=== PATIENT | male | born 1940 | race Asian ===

== ENCOUNTER 2019-06-21 10:18 | Emergency (ER) | payer MEDICARE, OTHER ==
[~2019-06-21] VITALS: Ht 170.2 cm; Wt 63.6 kg
[~2019-06-21 10:18] MED LIST: DOCU100T8 PO; HYDR28CR45; SIMV-260 PO; VALS160T2 PO
[2019-06-21] MEDS ORDERED: BACL10TA PO (10:25)
[2019-06-21] MEDS ORDERED: SENN-106 PO (10:25)
[2019-06-21] MEDS ORDERED: NAPH30DR5 OU (10:25)
[2019-06-21] MEDS ORDERED: LOSA50TA64 PO (10:25)
[2019-06-21 10:52] VITALS: BP 158/90
[2019-06-21] MEDS ORDERED: PROPARACAINE HCL 0.5% 15 ML OPHTHALMIC SOLUTION OU ONE (11:00)
== END 2019-06-21 11:35 | disposition home or self-care (01) ==
LOC: EMS 10:20
DX: H11.31 Conjunctival hemorrhage, right eye (principal); I10 Essential (primary) hypertension; E78.00 Pure hypercholesterolemia, unspecified; Z88.8 Allergy status to other drugs, medicaments and biological substances; Z79.899 Other long term (current) drug therapy

== ENCOUNTER 2025-08-03 15:47 | Emergency (ER) | payer OTHER ==
[~2025-08-03] VITALS: Ht 167.6 cm; Wt 60.5 kg
[~2025-08-03 15:47] MED LIST changes: +AMLO-258 PO; +ASPI-1444 PO; +ATOR20TA PO; +ATOR20TA65 PO; +AZIT500T4 PO; +DEXA2 PO; +DOCU-412 PO; -DOCU100T8 PO; -HYDR28CR45; +HYDR50TA37 PO; +LUBI24CA40 PO; +LUBI24CA9 PO; +METO25XL PO; +OXYB-34 PO; +PRAM0.5T12 PO; +PROP10DR15 OU; -SIMV-260 PO; -VALS160T2 PO
[2025-08-03 15:56] VITALS: BP 132/61; PULSE 70; RESP 18; TEMP 98.2; O2SAT 97
[2025-08-03 18:09] LABS: COVID AG,FIA SOURCE NASAL SWAB
[2025-08-03 18:29] LABS: INFLUENZA TYPE A NEGATIVE FOR TYPE A (NEGATIVE); INFLUENZA TYPE B NEGATIVE FOR TYPE B (NEGATIVE); SARS-COV2 (COVID) ANTIGEN,FIA Negative (Negative)
[2025-08-03] MEDS ORDERED: ACET-2247 PO (19:11)
[2025-08-03] MEDS ORDERED: AZIT-164 PO (19:11)
[2025-08-03] MEDS: AZITHROMYCIN 500 MG TABLET PO ONE (19:14)
[2025-08-04] MEDS ORDERED: ACET-2247 PO (11:14)
[2025-08-04] MEDS ORDERED: AZIT-164 PO (11:14)
== END 2025-08-03 19:20 | disposition home or self-care (01) ==
LOC: EMS 15:47
DX: J40 Bronchitis, not specified as acute or chronic (principal); R05.9 Cough, unspecified; Z86.73 Personal history of transient ischemic attack (TIA), and cerebral infarction without residual deficits; Z79.52 Long term (current) use of systemic steroids; Z98.890 Other specified postprocedural states; Z79.82 Long term (current) use of aspirin; Z79.899 Other long term (current) drug therapy; Z20.822 Contact with and (suspected) exposure to COVID-19
CPT/HCPCS: 99284; 71045; 87426; 87804; J0456